=== PATIENT | female | born 1995 | race Caucasian/White ===

== ENCOUNTER 2016-11-22 18:22 | Emergency (ER) | payer OTHER ==
[~2016-11-22] VITALS: Ht 157.5 cm; Wt 50.0 kg
[2016-11-22] MEDS ORDERED: PredniSONE 20 MG TABLET PO ONE (20:00)
[2016-11-22 20:18] VITALS: BP 116/66
== END 2016-11-22 20:25 | disposition home or self-care (01) ==
LOC: EMS 18:27
DX: R21 Rash and other nonspecific skin eruption (principal)
CPT/HCPCS: 81025; 99283; J7512